=== PATIENT | female | born 1985 | race Caucasian/White ===

== ENCOUNTER 2018-01-19 10:30 | Inpatient (IN) | payer OTHER ==
[2018-01-19] VITALS (58 sets, daily range): BP systolic 87–143; BP diastolic 45–82; PULSE 56–274; RESP 14–18; TEMP 97.4–98; O2SAT 99–100
[~2018-01-19] VITALS: Ht 170.2 cm; Wt 75.0 kg
[2018-01-19] MEDS ORDERED: LACTATED RINGER'S 1000 ML INJ 1,000 ML IV PRN (11:07)
[2018-01-19] MEDS: LACTATED RINGER'S 1000 ML INJ 1,000 ML IV SCH ×2 (11:07→19:18)
[2018-01-19] MEDS ORDERED: CITRIC ACID-SODIUM CITRATE LIQ 30 ML UDC PO SCH (11:15)
[2018-01-19] MEDS ORDERED: LIDOCAINE HCL 1% 50 ML VIAL INFIL PRN (11:15)
[2018-01-19] MEDS ORDERED: SODIUM CHLORID 0.9% 500 ML INJ 500 ML IV PRN (11:15)
[2018-01-19] MEDS ORDERED: OXYTOCIN 30 UNITS-500ML PREMIX 500 ML IV ONE (11:15)
[2018-01-19] MEDS ORDERED: LIDOCAINE HCL 1% 50 ML VIAL I-DERMAL PRN (11:15)
[2018-01-19] MEDS ORDERED: MINERAL OIL 10 ML VIAL TOPICAL PRN (11:15)
[2018-01-19] MEDS ORDERED: PREN1TAB45 PO (11:18)
--- NOTE | 2018-01-19 11:19 | HHI.HP ---
History & Physical H&P Patient Name: Bree Baez Unit Number: [id number] Date of : 1985 Patient Status: Registered Emergency Room Attending Doctor: Clarke Narvaez Jr., MD HPI HPI Travel History International Travel<30 Days: No Contact w/Intl Traveler<30Days: No History of Present Illness HPI 32-year-old female at 39/2 weeks with history of HSV presents to the OB ED for leakage of fluid. She is a patient of Dr. Gonzalez. Patient's reports that she woke up this morning and felt that she had some leakage of fluid. After she took a towel shower around 9 AM, she felt a gush of fluid and started having some constant lower abdominal cramping pain. She denies vaginal bleeding , dysuria, CP, and SOB. She endorses good movement. She states that she has no active herpetic lesions. She reports being on Valtrex(unknown dose) for the past 3 weeks. She is GBS negative. History (Limited) History Past Medical History Narrative Medical HSV currently on Valtrex History of 6 cm uterine fibroid Obstetric History Obstetric History Past Surgical History Narrative Surgical Breast augmentation 2 years ago Family History Narrative Family History Mom history of breast cancer at age 50 Social History Alcohol Use: No Tobacco Use: No Substance Abuse: No Allergies-Medications Allergies-Medications (Allergen,Severity, Reaction): Coded Allergies: No Known Allergies (Verified Allergy, Unknown, 01/19/18) ROS Review of Systems Except as stated in HPI: all other systems reviewed are Neg Physical Exam Physical Exam Narrative GENERAL: Well-nourished, well-developed patient. SKIN: Warm and dry. HEAD: Normocephalic and atraumatic. EYES: No scleral icterus. No injection or drainage. ENT: No nasal drainage noted. Mucous membranes pink. Airway patent. NECK: Supple, trachea midline. No JVD. CARDIOVASCULAR: Regular rate and rhythm without murmurs, gallops, or rubs. RESPIRATORY: Breath sounds equal bilaterally. No accessory muscle use. ABDOMEN/GI: Abdomen soft, non-tender, bowel sounds present, no rebound, no guarding GENITOURINARY: External Genitalia: intact and normal in appearance Cervix: posterior Dilatation: 4cm Effacement: 70% Station: -1 Presentation: vertex Membranes: ruptures Uterine Contractions: Irregular FHT's: Category: 1 Baseline: 130s Reactive: Yes Variability: Moderate Decels: None EXTREMITIES: No cyanosis or edema. BACK: Nontender without obvious deformity. NEUROLOGICAL: Awake and alert. Motor and sensory grossly within normal limits. Five out of 5 muscle strength in all muscle groups. Normal speech. Data Data Data Vital Signs Reviewed: Yes Group B Strep: Negative MDM MDM Medical Record Reviewed: Yes Plan 32-year-old female at 39/2 weeks with history of HSV presents to the OB ED for leakage of fluid. Admit to L&D -Intrauterine -Amnisure positive -FHT: 130s, category 1, reassuring -Hx of HSV, currently on Valtrex -GBS negative -Admit to L & D for expectant management Raysa Aguilera MD R1 Jan 19, 2018 11:18 Raysa Aguilera MD R1 Jan 19, 2018 11:19
[2018-01-19] MEDS ORDERED: SODIUM CHLOR 0.9% 1000 ML INJ 1,000 ML IV PRN (11:27)
[2018-01-19 12:26] LABS: BACTERIA, URINE RARE /hpf; BILIRUBIN, URINE NEG (NEG); BLOOD, URINE TRACE (NEG); GLUCOSE,URINE NEG (NEG); KETONE, URINE NEG (NEG); MUCUS URINE FEW /lpf (OCC); NITRITE,URINE NEG (NEG); SQUAMOUS EPITHELIAL CELL URINE 2 /hpf (0-5); URINE COLOR STRAW (YELLW/STRAW); URINE LEUKOCYTE ESTERASE NEG (NEG)
[2018-01-19 13:17] LABS: AUTOMATED NEUTROPHIL # 6.5 TH/MM3 (1.8-7.7); BASOPHIL % 0.4 % (0.0-2.0); EOSINOPHIL % 0.3 % (0.0-4.0); HEMATOCRIT 35.8 % (35.0-46.0); HEMOGLOBIN 12.4 GM/DL (11.6-15.3); LYMPH % 19.7 % (9.0-44.0); LYMPHOCYTE # 1.7 TH/MM3 (1.0-4.8); MEAN CELL VOLUME 94.4 FL (80.0-100.0); MEAN CORPUSCULAR HEMOGLOBIN 32.8 PG (27.0-34.0); MEAN CORPUSCULAR HGB CONC 34.7 % (32.0-36.0); MEAN PLATELET VOLUME 11.7 FL (7.0-11.0); MONO % 5.8 % (0.0-8.0); MONOCYTE # 0.5 TH/MM3 (0-0.9); NEUT % 73.8 % (16.0-70.0); PLATELET COUNT 130 TH/MM3 (150-450); RED BLOOD COUNT 3.79 MIL/MM3 (4.00-5.30); RED CELL DISTRIBUTION WIDTH 13.2 % (11.6-17.2); WHITE BLOOD COUNT 8.8 TH/MM3 (4.0-11.0)
[2018-01-19] MEDS ORDERED: OXYTOCIN 30 UNITS/NS 500ML PREMIX IV PRN (13:30)
[2018-01-19] MEDS ORDERED: fentaNYL 2MCG-BUPIV 0.125% INJ 100 ML ONE (16:40)
[2018-01-19] MEDS ORDERED: ePHEDrine/NS 25 MG/5 ML SYRINGE ONE (16:40)
[2018-01-19] MEDS ORDERED: NO SYSTEM NARCOTICS PRN (18:30)
[2018-01-19] MEDS ORDERED: ePHEDrine/NS 25 MG/5 ML SYRINGE IV PUSH PRN (18:30)
[2018-01-19] MEDS ORDERED: fentaNYL 2MCG-BUPIV 0.125% 100 ML EPIDURAL PRN (18:30)
[2018-01-19] MEDS ORDERED: DO NOT ADMINISTER ANTICOAGULANTS PRN (18:30)
[2018-01-20] VITALS (11 sets, daily range): BP systolic 104–122; BP diastolic 56–78; PULSE 57–106; RESP 15–18; TEMP 97.4–98.4
--- NOTE | 2018-01-20 00:49 | PD.OB.DELI ---
Weeks gestation: 39 Gest age assessed date: Jan 19, 2018 Pt started active labor?: Yes Active labor start date: Jan 19, 2018 Medical induction of labor?: No Artificial rupture of membrane: No Anesthesia: Epidural Episiotomy: Midline Vaginal Delivery: Vacuum Presentation: Occiput anterior Nuchal Cord: None Delayed cord clamping (45 sec): Yes : Female Delivery date: Jan 19, 2018 Delivery time: 23:54 One Minute : 7 Five Minute : 7 Weight: 8/12 Placenta: Spontaneous delivery, Intact, 3 vessel cord Laceration: Episiotomy, 4 deg, Involving anal sphincter, Into rectum Repair: Vicryl running Estimated blood loss: 350 Additional Information Vacuum extraction of beautiful baby Milagro She pushed to the introitus and was stuck there for over an hour I felt that she was pushing adequately so we decided to try the vacuum the strip looked perfect. We put the vacuum on through 2 uterine contractions and one pop off and the baby 's head delivered easily. The remainder of the baby was delivered without difficulty supporting the peritoneum but we still sustained 4 laceration. Placenta was spontaneous intact. The fourth degree was repaired using 3-0 Vicryl to sew the sheath of the rectus muscles together in interrupted fashion then 4-0 Vicryl for the rectal tear which was approximately 1 cm into the rectum. The rectus muscles were then reapproximated with 2-0 Vicryl. The remainder the episiotomies repaired in the usual fashion with 3-0 Vicryl. The baby had respiratory issues and was transferred to the NICU started on antibiotics because the baby was slightly warm as well. I will give her a gram of Ancef because of the fourth degree tear Ela Gonzalez MD Jan 20, 2018 00:49
[2018-01-20] MEDS ORDERED: DOCUSATE SODIUM 50 MG/SENNA 8.6 MG TAB PO PRN (01:00)
[2018-01-20] MEDS ORDERED: ALUMINUM/MAGNESIUM/SIMETH 30 ML CUP PO PRN (01:00)
[2018-01-20] MEDS ORDERED: SODIUM CHLORIDE 0.9% FLUSH 10 ML FLUSH IV FLUSH PRN (01:00)
[2018-01-20] MEDS ORDERED: WITCH HAZEL 50%/GLYCERIN 12.5% 40 PAD JAR TOPICAL PRN (01:00)
[2018-01-20] MEDS ORDERED: OXYTOCIN 30 UNITS-500ML PREMIX 500 ML IV SCH (01:00)
[2018-01-20] MEDS ORDERED: OXYTOCIN 30 UNITS-500ML PREMIX 500 ML IV ONE (01:00)
[2018-01-20] MEDS ORDERED: oxyCODONE/ACETAMINOPHEN 5 MG/325 MG TAB PO PRN ×2 (01:00)
[2018-01-20] MEDS ORDERED: ONDANSETRON ODT 4 MG TAB PO PRN (01:00)
[2018-01-20] MEDS ORDERED: ZOLPIDEM TARTRATE 5 MG TAB PO PRN (01:00)
[2018-01-20] MEDS ORDERED: BENZOCAINE 20% TOPICAL SPRAY 60 ML CAN TOPICAL PRN (01:00)
[2018-01-20] MEDS: IBUPROFEN 800 MG TAB PO PRN ×2 (01:05→15:58)
[2018-01-20] MEDS ORDERED: PERI PO (08:24)
[2018-01-20] MEDS ORDERED: OXYC1TAB63 PO (08:24)
[2018-01-20] MEDS ORDERED: IBUP1TAB7 PO (08:24)
--- NOTE | 2018-01-20 08:25 | HHI.DCPOC ---
Discharge Care Plan Diagnosis: (1) Fourth degree laceration of perineum during delivery, (2) Anemia (3) Vaginal delivery Report Symptoms to Your Doctor -Temperature above 100.5 degrees -Redness, of incision or excessive or foul smelling drainage -Unusual pain or calf pain -Increased vaginal bleeding -Painful or difficulty urinating -Feelings of extreme sadness or anxiety after 2 weeks Goals to Promote Your Health * To prevent worsening of your condition and complications * To maintain your health at the optimal level Directions to Meet Your Goals Take your medications as prescribed Follow your dietary instruction Follow activity as directed Ensure plenty of rest for recovery Drink fluids for hydration Keep your appointments as scheduled Take your immunizations and boosters as scheduled If your symptoms worsen call your PCP, if no PCP go to Urgent Care Center or Emergency Room Smoking is Dangerous to Your Health. Avoid second hand smoke Call the 24-hour crisis hotline for domestic abuse at Ela Gonzalez MD Jan 20, 2018 08:25
[2018-01-20] MEDS ORDERED: SODIUM CHLORIDE 0.9% FLUSH 10 ML FLUSH IV FLUSH SCH (09:00)
[2018-01-20] MEDS: DOCUSATE SODIUM 50 MG/SENNA 8.6 MG TAB PO SCH ×2 (09:00→19:54)
--- NOTE | 2018-01-20 11:32 | HHI.OB ---
Subjective Post Day: 1 Objective Vitals/I&O Vital Signs Date Time Temp Pulse Resp B/P (MAP) Pulse Ox O2 Delivery O2 Flow Rate FiO2 01/20/18 08:17 97.7 01/20/18 07:46 97.4 57 16 119/75 (90) 01/20/18 03:08 98.4 60 18 104/56 (72) 01/20/18 01:15 61 116/65 (82) 01/20/18 01:10 15 01/20/18 01:00 65 116/65 (82) 01/20/18 00:30 71 119/61 (80) 01/20/18 00:15 71 112/61 (78) 01/20/18 00:05 18 01/20/18 00:00 106 122/78 (93) 01/19/18 23:31 66 113/60 (77) 01/19/18 23:00 68 122/67 (85) 01/19/18 22:45 78 100 01/19/18 22:40 65 100 01/19/18 22:35 70 100 01/19/18 22:30 80 114/75 (88) 100 01/19/18 22:30 64 01/19/18 22:25 100 01/19/18 22:25 72 01/19/18 22:20 100 01/19/18 22:20 68 01/19/18 22:15 100 01/19/18 22:15 81 01/19/18 22:10 72 100 01/19/18 22:05 77 100 01/19/18 22:00 70 124/71 (88) 100 01/19/18 22:00 68 01/19/18 21:55 86 01/19/18 21:55 100 01/19/18 21:50 100 01/19/18 21:50 79 01/19/18 21:45 100 01/19/18 21:45 70 01/19/18 21:40 72 100 01/19/18 21:35 61 100 01/19/18 21:30 66 101/57 (72) 100 01/19/18 21:30 78 01/19/18 21:25 59 100 01/19/18 21:20 66 100 01/19/18 21:15 67 100 01/19/18 21:10 64 100 01/19/18 21:05 68 100 01/19/18 21:00 100 01/19/18 21:00 98.0 16 01/19/18 21:00 61 01/19/18 21:00 71 111/67 (82) 01/19/18 20:55 61 100 01/19/18 20:50 63 100 01/19/18 20:45 65 100 01/19/18 20:40 63 99 01/19/18 20:35 64 99 01/19/18 20:30 80 100/59 (73) 01/19/18 20:30 100 01/19/18 20:30 274 01/19/18 20:00 60 87/45 (59) 01/19/18 19:31 73 01/19/18 19:16 69 01/19/18 19:15 14 01/19/18 19:03 64 111/62 (78) 01/19/18 19:03 98.0 01/19/18 18:45 180 95/67 (76) 01/19/18 18:31 155 100/56 (71) 01/19/18 18:15 104/74 (84) 01/19/18 18:00 67 99/54 (69) 01/19/18 17:45 67 103/58 (73) 01/19/18 17:35 64 01/19/18 17:35 62 115/73 (87) 01/19/18 17:30 61 114/60 (78) 01/19/18 17:30 59 01/19/18 17:25 66 01/19/18 17:25 65 119/63 (81) 01/19/18 17:20 62 01/19/18 17:20 69 113/61 (78) 01/19/18 17:16 103 92/70 (77) 01/19/18 17:15 67 01/19/18 17:10 63 120/75 (90) 01/19/18 17:10 66 01/19/18 17:06 65 133/74 (93) 01/19/18 17:05 67 01/19/18 17:01 109 139/82 (101) 01/19/18 17:00 68 01/19/18 16:37 56 143/78 (99) 01/19/18 16:21 58 141/77 (98) 01/19/18 15:01 75 93/76 (82) 01/19/18 14:31 67 120/72 (88) 01/19/18 14:14 18 01/19/18 14:10 63 120/73 (89) 01/19/18 14:08 97.4 Objective Remarks GENERAL: Well-nourished, well-developed patient. CARDIOVASCULAR: Regular rate and rhythm without murmurs, gallops, or rubs. RESPIRATORY: Breath sounds equal bilaterally. No accessory muscle use. ABDOMEN/GI: Abdomen soft, non-tender. Fundus: Firm, non-tender at umbilicus. GENITOURINARY: Light to moderate bleeding. EXTREMITIES: No cyanosis or edema, non-tender, without signs of DVT. Medications and IVs Current Medications Medications (Trade) Dose Ordered Sig/Kleber Route Start Time Stop Time Status Last Admin (NS Flush) 2 ml BID IV FLUSH 01/20/18 09:00 (NS Flush) 2 ml UNSCH PRN IV FLUSH 01/20/18 01:00 (Tylenol) 650 mg Q4H PRN PO 01/20/18 01:00 (Motrin) 800 mg Q8H PRN PO 01/20/18 01:00 01/20/18 01:05 (Percocet 5-325 Mg) 1 tab Q4H PRN PO 01/20/18 01:00 01/20/18 01:06 (Percocet 5-325 Mg) 2 tab Q4H PRN PO 01/20/18 01:00 (Americaine 20% Top Spr) 1 spray Q4H PRN TOPICAL 01/20/18 01:00 01/20/18 01:09 (Tucks Pads) 1 applic QID PRN TOPICAL 01/20/18 01:00 (Maira-Colace) 2 tab Q12H PRN PO 01/20/18 01:00 (Ambien) 5 mg HS PRN PO 01/20/18 01:00 (M-M-R Ii Inj) 0.5 ml ONCE ONCE SQ 01/20/18 16:00 01/20/18 16:01 (Boostrix Inj) 0.5 ml ONCE ONCE IM 01/20/18 16:00 01/20/18 16:01 (Mag-Al Plus Susp Liq) 15 ml Q8H PRN PO 01/20/18 01:00 (Zofran Odt) 4 mg Q6H PRN PO 01/20/18 01:00 (Maira-Colace) 1 tab BID PO 01/20/18 09:00 Assessment/Plan Problem List: (1) Fourth degree laceration of perineum during delivery, ICD Codes: O70.3 - Fourth degree perineal laceration during delivery (2) Vaginal delivery ICD Codes: O80 - Encounter for full-term uncomplicated delivery Assessment and Plan pt doing well pain well managed with oral pain medication pt using ice for perineum stool softeners encouraged baby in nicu at this time pt pumping breast routine Discharge Planning consider dc in 1-2 days Lorena Manzano Jan 20, 2018 11:32
[2018-01-20] MEDS ORDERED: DIPHTH/TETANUS/ACEL PERTUSSIS (BOOSTER) 0.5 ML VIAL/PFS IM ONE (16:00)
[2018-01-20] MEDS: ACETAMINOPHEN 325 MG TAB PO PRN ×2 (16:00→20:00)
[2018-01-20] MEDS ORDERED: MEASLES, MUMPS, RUBELLA VACCINE 0.5 ML VIAL SQ ONE (16:00)
[2018-01-21] MEDS: ACETAMINOPHEN 325 MG TAB PO PRN ×3 (00:59→13:03)
[2018-01-21] MEDS: IBUPROFEN 800 MG TAB PO PRN ×2 (00:59→09:27)
[2018-01-21] MEDS: DOCUSATE SODIUM 50 MG/SENNA 8.6 MG TAB PO SCH (08:30)
[2018-01-21 09:00] VITALS: BP 135/77; PULSE 88; RESP 20; TEMP 97.6
--- NOTE | 2018-01-21 11:12 | HHI.OB ---
Subjective Post Day: 2 Objective Vitals/I&O Vital Signs Date Time Temp Pulse Resp B/P (MAP) Pulse Ox O2 Delivery O2 Flow Rate FiO2 01/21/18 09:00 97.6 01/21/18 09:00 88 20 135/77 (96) 01/20/18 20:32 98.1 59 18 114/69 (84) Objective Remarks GENERAL: Well-nourished, well-developed patient. CARDIOVASCULAR: Regular rate and rhythm without murmurs, gallops, or rubs. RESPIRATORY: Breath sounds equal bilaterally. No accessory muscle use. ABDOMEN/GI: Abdomen soft, non-tender. Fundus: Firm, non-tender at umbilicus. GENITOURINARY: Light to moderate bleeding. EXTREMITIES: No cyanosis or edema, non-tender, without signs of DVT. Medications and IVs Current Medications Medications (Trade) Dose Ordered Sig/Kleber Route Start Time Stop Time Status Last Admin (NS Flush) 2 ml BID IV FLUSH 01/20/18 09:00 (NS Flush) 2 ml UNSCH PRN IV FLUSH 01/20/18 01:00 (Tylenol) 650 mg Q4H PRN PO 01/20/18 01:00 01/21/18 09:27 (Motrin) 800 mg Q8H PRN PO 01/20/18 01:00 01/21/18 09:27 (Percocet 5-325 Mg) 1 tab Q4H PRN PO 01/20/18 01:00 01/20/18 01:06 (Percocet 5-325 Mg) 2 tab Q4H PRN PO 01/20/18 01:00 (Americaine 20% Top Spr) 1 spray Q4H PRN TOPICAL 01/20/18 01:00 01/20/18 01:09 (Tucks Pads) 1 applic QID PRN TOPICAL 01/20/18 01:00 (Maira-Colace) 2 tab Q12H PRN PO 01/20/18 01:00 01/20/18 15:58 (Ambien) 5 mg HS PRN PO 01/20/18 01:00 (Mag-Al Plus Susp Liq) 15 ml Q8H PRN PO 01/20/18 01:00 (Zofran Odt) 4 mg Q6H PRN PO 01/20/18 01:00 (Maira-Colace) 1 tab BID PO 01/20/18 09:00 01/21/18 08:30 Assessment/Plan Problem List: (1) Fourth degree laceration of perineum during delivery, ICD Codes: O70.3 - Fourth degree perineal laceration during delivery (2) Vaginal delivery ICD Codes: O80 - Encounter for full-term uncomplicated delivery Assessment and Plan pt doing well pain well managed with oral pain medication pt taking stool softeners, has not had bm yet baby in nicu to stabilize sugar, LGA pt pumping breast routine care Discharge Planning consider home today, stay close is an option Lorena Manzano Jan 21, 2018 11:12
--- NOTE | 2018-01-21 11:15 | HHI.DS ---
Admission Date Jan 19, 2018 at 11:21 Discharge Date: Jan 21, 2018 Admitting Diagnosis term srom Diagnosis: (1) Vaginal delivery ICD Codes: O80 - Encounter for full-term uncomplicated delivery (2) Fourth degree laceration of perineum during delivery, ICD Codes: O70.3 - Fourth degree perineal laceration during delivery Delivery Date: Jan 19, 2018 Vaginal Delivery: Normal : Female Brief History 32-year-old female at 39/2 weeks with history of HSV presents to the OB ED for leakage of fluid. She is a patient of Dr. Gonzalez. Patient's reports that she woke up this morning and felt that she had some leakage of fluid. After she took a towel shower around 9 AM, she felt a gush of fluid and started having some constant lower abdominal cramping pain. She denies vaginal bleeding , dysuria, CP, and SOB. She endorses good movement. She states that she has no active herpetic lesions. She reports being on Valtrex(unknown dose) for the past 3 weeks. She is GBS negative. proceed to [facility] Hospital Course term [facility] routine care Pt Condition on Discharge: Good Discharge Disposition: Discharge Home Discharge Instructions Diet Instructions: As Tolerated, No Restrictions Additional Diet Instructions: Drink at least 8 - 16 oz bottles of water a day Activities You Can Perform: Shower Only-No Bath, Sitz Bath Activities to Avoid: Lifting/Bending, Sexual Activity Additional Activity Instruc.: No driving until off pain medications Do not lift anything heavier than your baby in an carrier Follow up Referrals: APARTMENT COMMUNITY ASSISTANT MANAGER - 2 Weeks @ [facility] New Medications: Ibuprofen (Ibuprofen) 800 Mg Tab 800 MG PO Q8H PRN for CRAMPING, #30 TAB Oxycodone HCl/Acetaminophen (Oxycodone-Acetaminophen 5-325) 5 Mg-325 Mg Tablet 1 TAB PO Q4H PRN for moderate pain, #12 TAB Sennosides-Docusate Sodium (Gnp Senna Plus 8.6-50 mg) 8.6 Mg-50 Mg Tab 1 TAB PO BID for forth degree tear, #60 TAB Continued Medications: Vit,Calc76/Iron/Folic (Pnv 29-1 Tablet) 29 Mg Iron-1 Mg Tablet 1 TAB PO DAILY Lorena Manzano Jan 21, 2018 11:15
== END 2018-01-21 13:47 | disposition home or self-care (01) | DRG 774 ==
LOC: HOBED 10:30 → H2EA 11:21 → H1EA 01-20 02:44
PROVIDERS: ADMIT Obstetrics & Gynecology; ATTEND Obstetrics & Gynecology
PROC: 10D07Z6 Extraction of Products of Conception, Vacuum, Via Natural or Artificial Opening (ICD-10-PCS; principal; 2018-01-19)
PROC: 0DQP0ZZ Repair Rectum, Open Approach (ICD-10-PCS; 2018-01-19)
PROC: 0W8NXZZ Division of Female Perineum, External Approach (ICD-10-PCS; 2018-01-19)
PROC: 00HU33Z Insertion of Infusion Device into Spinal Canal, Percutaneous Approach (ICD-10-PCS; 2018-01-19)
PROC: 3E0R3BZ Introduction of Anesthetic Agent into Spinal Canal, Percutaneous Approach (ICD-10-PCS; 2018-01-19)
DX: O99.02 Anemia complicating childbirth (principal); O98.52 Other viral diseases complicating childbirth; O70.3 Fourth degree perineal laceration during delivery; B00.9 Herpesviral infection, unspecified; D64.9 Anemia, unspecified; Z3A.39 39 weeks gestation of pregnancy; Z37.0 Single live birth; Z98.82 Breast implant status
CPT/HCPCS: 59025; 80307; 81001; 84112; 85025; 86900; 86901; 88307; 90715; 99283; G0481; J0690; J2590; J7120